=== PATIENT | female | born 1965 | race Hispanic/Latino ===

== ENCOUNTER 2018-08-26 13:48 | Emergency (ER) | payer OTHER ==
[~2018-08-26] VITALS: Ht 167.6 cm; Wt 90.7 kg
--- NOTE | 2018-08-26 14:48 | Diagnostic Imaging Report ---
Exam: Right elbow 2 views History: Pain Comparison: None. Findings: No fracture or malalignment. Joint spaces preserved. Enthesophyte formation at the common extensor and flexor origin. Impression: No acute osseous abnormality Signed by: Dr. Shan Lowe M.D. on 08/26/2018 2:45 PM
--- NOTE | 2018-08-26 15:23 | NUR ---
PT REFUSED SLING, STATES SHE'S GOT 2 AT HOME FROM OTHER ER'S. PT INFORMED OF NEED TO FOLLOW UP WITH ORTHOPEDICS. PER MD, FX CHRONIC AND DOES NOT NEED A SPLINT. MD STATES WILL CAUSE IMMOBILITY ISSUES FOR PT. PT STATES VERBAL UNDERSTANDING. PT AAOX4.
== END 2018-08-26 15:26 | disposition home or self-care (01) ==
LOC: FSED 13:48
DX: G89.11 Acute pain due to trauma (principal); M25.521 Pain in right elbow
CPT/HCPCS: J1170; Q0162; 99284

== ENCOUNTER → 2018-08-26 | Emergency (ER) | payer OTHER ==
[~2018-08-26] VITALS: Ht 167.6 cm; Wt 90.7 kg
[~2018-08-26] MED LIST: HYDROMORPHONE 2MG/ML 2 MG/ML ML IM ONE; ONDANSETRON HCL 4 MG ORAL DISINTEGRATING TAB ONE
--- NOTE | 2018-08-26 13:54 | NUR ---
PT CALLED BACK FOR ASSESSMENT BY SHARIF PATEL, NO ANSWER.
--- NOTE | 2018-08-26 14:45 | NUR ---
CALLED PT BACK FOR ASSESSMENT BY ENP NO ANSWER.
== END | disposition left against medical advice (07) ==
LOC: ER 11:28
DX: M25.521 Pain in right elbow (principal)
CPT/HCPCS: J1170; Q0162